=== PATIENT | female | born 1990 ===

== ENCOUNTER 2021-12-15 06:15 | Day surgery (SDC) | payer OTHER ==
[~2021-12-15] VITALS: Ht 160 cm; Wt 70.3 kg
[~2021-12-15 06:15] MED LIST: GABAPENT PO
== END 2021-12-15 16:40 | disposition home or self-care (01) ==
LOC: CIR.AMB 06:15
PROVIDERS: ATTEND Colon & Rectal Surgery
DX: K52.89 Other specified noninfective gastroenteritis and colitis (principal); K62.0 Anal polyp; K64.1 Second degree hemorrhoids